=== PATIENT | female | born 1985 | race Caucasian/White ===

== ENCOUNTER 2016-04-30 04:00 | Emergency (ER) | payer OTHER ==
[~2016-04-30] VITALS: Ht 167.6 cm; Wt 59.1 kg
[~2016-04-30 04:00] MED LIST: ALBU8.5H3 INH; BISA10SU58 PR; IBUP400T22 PO; LACT10SO5 PO; NITR-58 PO; PHEN-538 PO; PROM5SYR2 PO
[2016-04-30 04:06] VITALS: Ht 167.6 cm; Wt 59.1 kg
[2016-04-30] MEDS ORDERED: AZIT250T94 PO (06:18)
--- NOTE | 2016-04-30 06:26 | ERD ---
ER Documentation Chief Complaint Date/Time DATE: 04/30/16 TIME: 06:24 Chief Complaint SOB and ST x 1 week, no distress, hx bronchitis/pneumonia HPI Patient is a 31-year-old female who has shortness of breath and throat pain for 1 week. She has tried eqzc-hfm-motssap medications which have not helped. Denies any nausea vomiting or diarrhea. Denies fever. Admits to dry cough. She is tolerating oral intake. There is no hemoptysis. Pain is mild to moderate. ROS All systems reviewed and are negative except as per history of present illness. Medications Home Meds Active Scripts Azithromycin* (Zithromax*) 250 Mg Tablet, 250 MG PO .ZPACK DIRECTED, #6 TAB TAKE 500 MG (2 TABS) THE FIRST DAY THEN 250 MG (1 TAB) DAYS 2-5 Prov:KYLE GREENFIELD PA-C 04/30/16 Ibuprofen* (Ibuprofen*) 400 Mg Tablet, 400 MG PO Q6H Y for PAIN, #30 TAB Prov:SHANNAN THORPE PA-C 01/17/16 Promethazine HCl/Codeine (Prometh-Codein 6.25-10 mg/5 ml) 5 Ml Syrup, 5 ML PO Q6 for COUGH, #80 ML Prov:SHANNAN THORPE PA-C 01/17/16 Albuterol Sulfate* (Proair HFA*) 8.5 Gm Hfa.aer.ad, 2 PUFF INH Q4H Y for WHEEZING AND SOB, #1 INHALER Prov:SHANNAN THORPE PA-C 01/17/16 Phenazopyridine Hcl* (Pyridium*) 200 Mg Tab, 200 MG PO TID Y for DYSURIA, #6 TAB Prov:JEREMIAS SALAS NP 06/22/15 Nitrofurantoin Monohyd Macrocr* (Macrobid*) 100 Mg Capsr, 100 MG PO BID for 7 Days, CAP Prov:JEREMIAS SALAS NP 06/22/15 Nitrofurantoin Monohyd Macrocr* (Macrobid*) 100 Mg Capsr, 100 MG PO BID for 7 Days, CAP Prov:JEREMIAS SALAS NP 06/07/15 Bisacodyl* (Dulcolax*) 10 Mg/Supp.rect Supp.rect, 10 MG [place] DAILY, #7 SUPP.RECT Prov:HUMBERTO HERNADEZ DO 03/27/15 Lactulose* (Lactulose*) 10 Gm/15 Ml Solution, 10 GM PO DAILY, #240 ML Prov:HUMBERTO HERNADEZ DO 03/27/15 Reported Medications [none] Unknown Strength No Conflict Check 06/22/15 Allergies Allergies: Coded Allergies: No Known Allergy (Unverified , 06/22/15) PMhx/Soc Medical and Surgical Hx: pt denies Medical Hx, pt denies Surgical Hx History of Surgery: No Anesthesia Reaction: No Hx Neurological Disorder: No Hx Respiratory Disorders: No Hx Cardiac Disorders: No Hx Psychiatric Problems: No Hx Miscellaneous Medical Probl: No Hx Alcohol Use: No Hx Substance Use: No Hx Tobacco Use: Yes (4CIGS/ DAY) Smoking Status: Current every day smoker FmHx Family History: No diabetes Physical Exam Vitals Vital Signs Date Time Temp Pulse Resp B/P Pulse Ox O2 Delivery O2 Flow Rate FiO2 04/30/16 04:06 96.8 72 18 101/55 96 Physical Exam General: well developed, well nourished, alert, nontoxic, no distress Head: normocephalic, atraumatic Neck: Supple, nontender, no lymphadenopathy, no midline tenderness Ears: no tenderness over mastoids bilaterally, TMs nonerythematous, no exudates in canal Oropharynx: Mild tonsillar erythema, no edema, uvula midline, no exudates, no kissing tonsils, no drooling Respiratory: Clear to auscaultation bilaterally, speaks in full sentences, no use of accesory muscles or labored breathing, no rales, ronchi, or wheezing Cardiovascular: RRR, No murmurs GI: soft, non tender, non distended, negative murphys sign, negative mcburneys point tenderness Results 24 hrs Current Medications Medications (Trade) Dose Ordered Sig/Ananda Route PRN Reason Start Time Stop Time Status Last Admin Dose Admin Dexamethasone (Decadron) 8 mg ONCE ONCE IM 04/30/16 06:30 04/30/16 06:31 Procedures/MDM Patient presents with sore throat. She has tried [id number]-[id number]-[id number] medication which have not helped. I doubt peritonsillar abscess. Vital signs are normal. She was given Decadron here in the emergency room and discharged with azithromycin. Recommended this patient follow up with her primary care doctor within 48 hours or return to the emergency room for any worsening of symptoms. However this time I do believe there is suitable for outpatient management. I answered all their questions and they agreed with the plan and were discharged home. Departure Diagnosis: Primary Impression: Pharyngitis Condition: Stable Patient Instructions: Pharyngitis, Strep (Presumed) Additional Instructions: Call your primary care doctor TOMORROW for an appointment during the next 1-2 days.See the doctor sooner or return here if your condition worsens before your appointment time. KYLE GREENFIELD PA-C Apr 30, 2016 06:26
[2016-04-30] MEDS ORDERED: DEXAMETHASONE 10 MG/ML 1 ML INJ IM ONE (06:30)
[2016-04-30] MEDS ORDERED: BENZ100C70 PO (06:40)
== END 2016-04-30 06:44 | disposition home or self-care (01) ==
LOC: FTE 04:00
DX: J02.9 Acute pharyngitis, unspecified (principal); F17.210 Nicotine dependence, cigarettes, uncomplicated
CPT/HCPCS: 96372; J1100; Z7502

== ENCOUNTER 2016-06-17 18:42 | Emergency (ER) | payer OTHER ==
[~2016-06-17] VITALS: Ht 162.6 cm; Wt 60.5 kg
[~2016-06-17 18:42] MED LIST changes: +AZIT250T94 PO; +BENZ100C70 PO
[2016-06-17 18:48] VITALS: Ht 162.6 cm; Wt 60.5 kg
[2016-06-17] MEDS ORDERED: HYDR-902 PO (19:05)
[2016-06-17] MEDS ORDERED: CEPH-443 PO (19:05)
--- NOTE | 2016-06-17 19:44 | ERD ---
ER Documentation Chief Complaint Date/Time DATE: 06/17/16 TIME: 19:43 Chief Complaint toothache HPI Patient is a 31-year-old female with no medical problems who presents with tooth pain. She said the pain started yesterday. It is worse with eating. She feels like her left upper molar is swollen. She has a dental appointment that she scheduled for Friday. She tried Tylenol and ibuprofen with minimal help. She denies fevers. ROS All systems reviewed and are negative except as per history of present illness. Medications Home Meds Active Scripts Hydrocodone/Acetaminophen ([place] 10-325 Tablet) 1 Each Tablet, 1 TAB PO Q6H Y for PAIN, #12 TAB Prov:NASIR ROBLES MD 06/17/16 Cephalexin* (Keflex*) 500 Mg Capsule, 500 MG PO QID for 7 Days, CAP Prov:NASIR ROBLES MD 06/17/16 Benzonatate* (Tessalon Perle*) 100 Mg Capsule, 100 MG PO Q8H Y for COUGH, #20 CAP Prov:KYLE GREENFIELD PA-C 04/30/16 Azithromycin* (Zithromax*) 250 Mg Tablet, 250 MG PO .ZPACK DIRECTED, #6 TAB TAKE 500 MG (2 TABS) THE FIRST DAY THEN 250 MG (1 TAB) DAYS 2-5 Prov:KYLE GREENFIELD PA-C 04/30/16 Ibuprofen* (Ibuprofen*) 400 Mg Tablet, 400 MG PO Q6H Y for PAIN, #30 TAB Prov:SHANNAN THORPE PA-C 01/17/16 Promethazine HCl/Codeine (Prometh-Codein 6.25-10 mg/5 ml) 5 Ml Syrup, 5 ML PO Q6 for COUGH, #80 ML Prov:SHANNAN THORPE PA-C 01/17/16 Albuterol Sulfate* (Proair HFA*) 8.5 Gm Hfa.aer.ad, 2 PUFF INH Q4H Y for WHEEZING AND SOB, #1 INHALER Prov:SHANNAN THORPE PA-C 01/17/16 Phenazopyridine Hcl* (Pyridium*) 200 Mg Tab, 200 MG PO TID Y for DYSURIA, #6 TAB Prov:JEREMIAS SALAS NP 06/22/15 Nitrofurantoin Monohyd Macrocr* (Macrobid*) 100 Mg Capsr, 100 MG PO BID for 7 Days, CAP Prov:JEREMIAS SALAS AUTOMATIC [employer]E [employer] 06/22/15 Nitrofurantoin Monohyd Macrocr* (Macrobid*) 100 Mg Capsr, 100 MG PO BID for 7 Days, CAP Prov:JEREMIAS SALAS [employer]OM[employer]E [employer] 06/07/15 Bisacodyl* (Dulcolax*) 10 Mg/Supp.rect Supp.rect, 10 MG [place] DAILY, #7 SUPP.RECT Prov:HUMBERTO HERNADEZ DO 03/27/15 Lactulose* (Lactulose*) 10 Gm/15 Ml Solution, 10 GM PO DAILY, #240 ML Prov:HUMBERTO HERNADEZ DO 03/27/15 Reported Medications [none] Unknown Strength No Conflict Check 06/22/15 Allergies Allergies: Coded Allergies: No Known Allergy (Unverified , 06/22/15) PMhx/Soc Medical and Surgical Hx: pt denies Medical Hx, pt denies Surgical Hx History of Surgery: No Anesthesia Reaction: No Hx Neurological Disorder: No Hx Respiratory Disorders: No Hx Cardiac Disorders: No Hx Psychiatric Problems: No Hx Miscellaneous Medical Probl: No Hx Alcohol Use: No Hx Substance Use: No Hx Tobacco Use: No (4CIGS/ DAY) Smoking Status: Former smoker FmHx Family History: No diabetes Physical Exam Vitals Vital Signs Date Time Temp Pulse Resp B/P Pulse Ox O2 Delivery O2 Flow Rate FiO2 06/17/16 18:48 97.2 72 20 101/70 100 Physical Exam Const: Mild distress secondary to pain Head: Atraumatic Eyes: Normal Conjunctiva ENT: Normal External Ears, Nose and Mouth. No obvious swelling to the left upper molars, patient has good dentition otherwise, no sign of decay Neck: Full range of motion..~ No meningismus. Resp: Clear to auscultation bilaterally Cardio: Regular rate and rhythm, no murmurs Abd: Soft, non tender, non distended. Normal bowel sounds Skin: No petechiae or rashes Back: No midline or flank tenderness Ext: No cyanosis, or edema Neur: Awake and alert Psych: Normal Mood and Affect Procedures/MDM Patient is a 31-year-old female presents with left upper dental molar pain. I believe that outpatient management is appropriate. I will treat the patient for an early dental abscess with Penicillin VK and I will treat the pain with short course of [place] for pain. The patient will need to follow-up at her dental appointment in 2 days. She can return for any worsening symptoms. I do not believe the patient requires further workup or admission the hospital at this time. I believe outpatient management is appropriate. Departure Diagnosis: Primary Impression: Toothache Condition: Fair Patient Instructions: Dental Pain Referrals: Your dentist Additional Instructions: SPECIALIST: YOU HAVE A MEDICAL CONDITION WHICH REQUIRES YOU TO SEE A SPECIALIST WITHIN THE NEXT 1-2 DAYS. PLEASE FOLLOW UP WITH YOUR PRIMARY PHYSICIAN FOR REFFERAL.IF YOU DO NOT HAVE A PRIMARY CARE PHYSICIAN AND/OR YOU CAN NOT AFFORD TO SEE A PHYSICIAN THE FOLLOWING RESOURCES HAVE BEEN SUPPLIED TO YOU. IT IS YOUR RESPONSIBILITY TO BE SEEN BY THE SPECIALIST NASIR ROBLES MD Jun 17, 2016 19:44
== END 2016-06-17 19:30 | disposition home or self-care (01) ==
LOC: FTE 18:42
DX: K08.89 Other specified disorders of teeth and supporting structures (principal); Z87.891 Personal history of nicotine dependence
CPT/HCPCS: 99284

== ENCOUNTER 2016-12-12 16:36 | Emergency (ER) | payer OTHER ==
[~2016-12-12] VITALS: Ht 157.5 cm; Wt 65.0 kg
[~2016-12-12 16:36] MED LIST changes: +CEPH-443 PO; +HYDR-902 PO
[2016-12-12 16:40] VITALS: Ht 157.5 cm; Wt 65.0 kg
[2016-12-12] MEDS ORDERED: BENZ100C70 PO (18:29)
[2016-12-12] MEDS ORDERED: IBUP-1542 PO (18:29)
[2016-12-12] MEDS ORDERED: PHEN177S43 MT (18:29)
--- NOTE | 2016-12-12 19:52 | ERD ---
ER Documentation Chief Complaint Date/Time DATE: 12/12/16 TIME: 19:49 Chief Complaint Complains of a sore throat since last night HPI 31-year-old female patient with no significant past medical history presents to the ED complaining of sore throat that started last night. Reports that she also has a dry cough. Denies any chest pain, shortness of breath, abdominal pain, nausea, vomiting, diarrhea. 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 Denies any fever, chills, wheezing. ROS All systems reviewed and are negative except as per history of present illness. Medications Home Meds Active Scripts Albuterol Sulfate* (Ventolin HFA*) 18 Gm Hfa.aer.ad, 2 PUFF INHALATION Q4H, #1 INHALER Prov:EYAD LOMAS PA-C 12/14/16 Benzonatate* (Tessalon Perle*) 100 Mg Capsule, 100 MG PO Q8H Y for COUGH, #20 CAP Prov:JULIANE GOODE PA-C 12/12/16 Ibuprofen* (Ibuprofen*) 600 Mg Tablet, 600 MG PO Q6, #20 TAB Prov:JULIANE GOODE PA-C 12/12/16 Phenol* (Chloraseptic* [place]) 177 Ml [place].pump, 2 SPRAY MT Q4H Y for SORE THROAT, #1 BOTTLE Prov:JULIANE GOODE PA-C 12/12/16 Hydrocodone/Acetaminophen ([place] 10-325 Tablet) 1 Each Tablet, 1 TAB PO Q6H Y for PAIN, #12 TAB Prov:NASIR ROBLES MD 06/17/16 Cephalexin* (Keflex*) 500 Mg Capsule, 500 MG PO QID for 7 Days, CAP Prov:NASIR ROBLES MD 06/17/16 Benzonatate* (Tessalon Perle*) 100 Mg Capsule, 100 MG PO Q8H Y for COUGH, #20 CAP Prov:KYLE GREENFIELD PA-C 04/30/16 Azithromycin* (Zithromax*) 250 Mg Tablet, 250 MG PO .DrePACK DIRECTED, #6 TAB TAKE 500 MG (2 TABS) THE FIRST DAY THEN 250 MG (1 TAB) DAYS 2-5 Prov:KYEL GREENFIELD PA-C 04/30/16 Ibuprofen* (Ibuprofen*) 400 Mg Tablet, 400 MG PO Q6H Y for PAIN, #30 TAB Prov:SHANNAN THORPE PA-C 01/17/16 Promethazine HCl/Codeine (Prometh-Codein 6.25-10 mg/5 ml) 5 Ml Syrup, 5 ML PO Q6 for COUGH, #80 ML Prov:SHANNAN THORPE PA-C 01/17/16 Albuterol Sulfate* (Proair HFA*) 8.5 Gm Hfa.aer.ad, 2 PUFF INH Q4H Y for WHEEZING AND SOB, #1 INHALER Prov:SHANNAN THORPE PA-C 01/17/16 Phenazopyridine Hcl* (Pyridium*) 200 Mg Tab, 200 MG PO TID Y for DYSURIA, #6 TAB Prov:JEREMIAS SALAS NP 06/22/15 Nitrofurantoin Monohyd Macrocr* (Macrobid*) 100 Mg Capsr, 100 MG PO BID for 7 Days, CAP Prov:JEREMIAS SALAS NP 06/22/15 Nitrofurantoin Monohyd Macrocr* (Macrobid*) 100 Mg Capsr, 100 MG PO BID for 7 Days, CAP Prov:JEREMIAS SALAS NP 06/07/15 Bisacodyl* (Dulcolax*) 10 Mg/Supp.rect Supp.rect, [address] DAILY, #7 SUPP.RECT Prov:HUMBERTO HERNADEZ DO 03/27/15 Lactulose* (Lactulose*) 10 Gm/15 Ml Solution, 10 GM PO DAILY, #240 ML Prov:HUMBERTO HERNADEZ DO 03/27/15 Reported Medications [none] Unknown Strength No Conflict Check 06/22/15 Allergies Allergies: Coded Allergies: No Known Allergy (Unverified , 06/22/15) PMhx/Soc Medical and Surgical Hx: pt denies Medical Hx, pt denies Surgical Hx History of Surgery: No Anesthesia Reaction: No Hx Neurological Disorder: No Hx Respiratory Disorders: No Hx Cardiac Disorders: No Hx Psychiatric Problems: No Hx Miscellaneous Medical Probl: No Hx Alcohol Use: No Hx Substance Use: No Hx Tobacco Use: No (4CIGS/ DAY) Smoking Status: Never smoker Physical Exam Vitals Vital Signs Date Time Temp Pulse Resp B/P Pulse Ox O2 Delivery O2 Flow Rate FiO2 12/12/16 16:40 98.0 74 20 109/61 97 Physical Exam Const: Yxw-[id number]-onuqzqthu, well-nourished. In no acute distress. Head: Atraumatic, normocephalic Eyes: Normal Conjunctiva without injection. No purulent discharge. PERRL. EOMI ENT: Normal external ear. Ear canal without erythema. Tympanic membrane pearly johnston without effusion or bulging. Nasal canal clear with normal turbinates. Moist oropharynx without tonsillar exudates. Non-erythematous pharynx. Uvula midline. No drooling. No trismus. Neck: Full range of motion. No meningismus. No cervical lymphadenopathy. Resp: Clear to auscultation bilaterally. No wheezing, rhonchi, rales, or crackles. No accessory muscle use. No retractions. Cardio: Regular rate and rhythm. No murmurs, rubs or gallops. Abd: Soft, non tender, non distended. Normal bowel sounds. No palpable masses. No rebound tenderness. No guarding. Skin: No petechiae or rashes Back: No midline tenderness. No CVA tenderness. Ext: No cyanosis, or edema. Neur: Awake and alert. Psych: Normal Mood and Affect Procedures/MDM This is a 31-year-old female patient with no significant past medical history presents to the ED complaining of sore throat, dry cough that started yesterday. Patient is afebrile and nontoxic-appearing. Patient has normal vital signs. This patient presents to the ED with symptoms consistent with a viral acute upper respiratory infection. Patient is afebrile and has normal vital signs. Patient's physical exam include lungs which were clear to auscultation and a normal pulse oximetry. There is a low suspicion for pneumonia , pneumothorax, mononucleosis, pulmonary embolism, epiglottitis, otitis media, otitis externa, viral/strep pharyngitis, sinusitis, peritonsillar abscess, mastoiditis, retropharyngeal abscess, meningitis, sepsis, acute abdomen or other emergent conditions. Fluids, rest, and symptomatic treatment are recommended for the management of patient's symptoms. Discharge medications: Tessalon Perles, Chloraseptic [place], Ibuprofen Patient was instructed to return to the ED for any new or worsening symptoms. They should otherwise follow up with the primary care provider within 1-2 days. The patient's questions were answered at the time of discharge. Patient understood and agreed with discharge management. Departure Diagnosis: Primary Impression: URI (upper respiratory infection) URI type: unspecified URI Qualified Code: J06.9 - Upper respiratory tract infection, unspecified type Condition: Stable Patient Instructions: Uri, Viral, No Abx (Adult) Referrals: [facility] YOU HAVE RECEIVED A MEDICAL SCREENING EXAM AND THE RESULTS INDICATE THAT YOU DO NOT HAVE A CONDITION THAT REQUIRES URGENT TREATMENT IN THE EMERGENCY DEPARTMENT. FURTHER EVALUATION AND TREATMENT OF YOUR CONDITION CAN WAIT UNTIL YOU ARE SEEN IN YOUR DOCTORS OFFICE WITHIN THE NEXT 1-2 DAYS. IT IS YOUR RESPONSIBILITY TO MAKE AN APPOINTMENT FOR FOLOW-UP CARE. IF YOU HAVE A PRIMARY DOCTOR --you should call your primary doctor and schedule an appointment IF YOU DO NOT HAVE A PRIMARY DOCTOR YOU CAN CALL OUR PHYSICIAN REFERRAL HOTLINE AT IF YOU CAN NOT AFFORD TO SEE A PHYSICIAN YOU CAN CHOSE FROM THE FOLLOWING [facility] [address] [facility]. [facility] [address] [facility] [facility] [address] [facility] [facility] [address] [facility] [facility] [address] [facility]. [facility]. [address] [facility]. [facility] YOU HAVE RECEIVED A MEDICAL SCREENING EXAM AND THE RESULTS INDICATE THAT YOU DO NOT HAVE A CONDITION THAT REQUIRES URGENT TREATMENT IN THE EMERGENCY DEPARTMENT. FURTHER EVALUATION AND TREATMENT OF YOUR CONDITION CAN WAIT UNTIL YOU ARE SEEN IN YOUR DOCTORS OFFICE WITHIN THE NEXT 1-2 DAYS. IT IS YOUR RESPONSIBILITY TO MAKE AN APPOINTMENT FOR FOLOW-UP CARE. IF YOU HAVE A PRIMARY DOCTOR --you should call your primary doctor and schedule and appointment IF YOU DO NOT HAVE A PRIMARY DOCTOR YOU CAN CALL OUR PHYSICIAN REFERRAL HOTLINE AT . IF YOU CAN NOT AFFORD TO SEE A PHYSICIAN YOU CAN CHOSE FROM THE FOLLOWING [facility]: [facility] [place] [address] [place] [address] [facility] [address] [place] [address] [facility] [address] [place] [address] [facility] URGENT CARE/SPECIALTIES Additional Instructions: Call your primary care doctor TOMORROW for an appointment during the next 2-3 days.See the doctor sooner or return here if your condition worsens before your appointment time. JULIANE GOODE PA-C Dec 12, 2016 19:52
== END 2016-12-12 18:40 | disposition home or self-care (01) ==
LOC: FTE 16:36
DX: J06.9 Acute upper respiratory infection, unspecified (principal); F17.210 Nicotine dependence, cigarettes, uncomplicated
CPT/HCPCS: 99283

== ENCOUNTER 2016-12-14 16:44 | Emergency (ER) | payer OTHER ==
[~2016-12-14] VITALS: Ht 157.5 cm; Wt 64.5 kg
[~2016-12-14 16:44] MED LIST changes: +IBUP-1542 PO; +PHEN177S43 MT
[2016-12-14 16:46] VITALS: Ht 157.5 cm; Wt 64.5 kg
[2016-12-14] MEDS ORDERED: ALBU18HF INHALATION (17:12)
[2016-12-14] MEDS ORDERED: DEXAMETHASONE 10 MG/ML 1 ML INJ IM ONE (17:30)
--- NOTE | 2016-12-14 18:21 | ERD ---
ER Documentation Chief Complaint Date/Time DATE: 12/14/16 TIME: 18:19 Chief Complaint COUGH AND CONGESTION WITH SOB X 6 DAYS HPI This patient is a 31-year-old female presenting to the emergency department with complaints of cough and congestion with mild shortness of breath ongoing intermittently for the past 6 days. The patient states she did have similar symptoms in the past and received an injection of Decadron and symptoms improved rapidly. Symptoms are constant and worsening. She was seen here recently and diagnosed with viral URI and given prescriptions for maintenance of symptoms at home. She denies fevers, chills, or other symptoms currently. ROS All systems reviewed and are negative except as per history of present illness. Medications Home Meds Active Scripts Albuterol Sulfate* (Ventolin HFA*) 18 Gm Hfa.aer.ad, 2 PUFF INHALATION Q4H, #1 INHALER Prov:EYAD LOMAS PA-C 12/14/16 Benzonatate* (Tessalon Perle*) 100 Mg Capsule, 100 MG PO Q8H Y for COUGH, #20 CAP Prov:JULIANE GOODE PA-C 12/12/16 Ibuprofen* (Ibuprofen*) 600 Mg Tablet, 600 MG PO Q6, #20 TAB Prov:JULIANE GOODE PA-C 12/12/16 Phenol* (Chloraseptic* [place]) 177 Ml [place].pump, 2 SPRAY MT Q4H Y for SORE THROAT, #1 BOTTLE Prov:JULIANE GOODE PA-C 12/12/16 Hydrocodone/Acetaminophen ([place] 10-325 Tablet) 1 Each Tablet, 1 TAB PO Q6H Y for PAIN, #12 TAB Prov:NAISR ROBLES MD 06/17/16 Cephalexin* (Keflex*) 500 Mg Capsule, 500 MG PO QID for 7 Days, CAP Prov:NASIR ROBLES MD 06/17/16 Benzonatate* (Tessalon Perle*) 100 Mg Capsule, 100 MG PO Q8H Y for COUGH, #20 CAP Prov:KYLE GREENFIELD PA-C 04/30/16 Azithromycin* (Zithromax*) 250 Mg Tablet, 250 MG PO .DrePACK DIRECTED, #6 TAB TAKE 500 MG (2 TABS) THE FIRST DAY THEN 250 MG (1 TAB) DAYS 2-5 Prov:KYLE GREENFIELD PA-C 04/30/16 Ibuprofen* (Ibuprofen*) 400 Mg Tablet, 400 MG PO Q6H Y for PAIN, #30 TAB Prov:SHANNAN THORPE PA-C 01/17/16 Promethazine HCl/Codeine (Prometh-Codein 6.25-10 mg/5 ml) 5 Ml Syrup, 5 ML PO Q6 for COUGH, #80 ML Prov:SHANNAN THORPE PA-C 01/17/16 Albuterol Sulfate* (Proair HFA*) 8.5 Gm Hfa.aer.ad, 2 PUFF INH Q4H Y for WHEEZING AND SOB, #1 INHALER Prov:SHANNAN THORPE PA-C 01/17/16 Phenazopyridine Hcl* (Pyridium*) 200 Mg Tab, 200 MG PO TID Y for DYSURIA, #6 TAB Prov:JEREMIAS SALAS NP 06/22/15 Nitrofurantoin Monohyd Macrocr* (Macrobid*) 100 Mg Capsr, 100 MG PO BID for 7 Days, CAP Prov:JEREMIAS SALAS PROFESSOR OF SOCIAL WORK 06/22/15 Nitrofurantoin Monohyd Macrocr* (Macrobid*) 100 Mg Capsr, 100 MG PO BID for 7 Days, CAP Prov:JEREMIAS SALAS PROFESSOR OF SOCIAL WORK 06/07/15 Bisacodyl* (Dulcolax*) 10 Mg/Supp.rect Supp.rect, 10 MG [place] DAILY, #7 SUPP.RECT Prov:HUMBERTO HERNADEZ DO 03/27/15 Lactulose* (Lactulose*) 10 Gm/15 Ml Solution, 10 GM PO DAILY, #240 ML Prov:HUMBERTO HERNADEZ DO 03/27/15 Reported Medications [none] Unknown Strength No Conflict Check 06/22/15 Allergies Allergies: Coded Allergies: No Known Allergy (Unverified , 06/22/15) PMhx/Soc Medical and Surgical Hx: pt denies Medical Hx History of Surgery: No Anesthesia Reaction: No Hx Neurological Disorder: No Hx Respiratory Disorders: No Hx Cardiac Disorders: No Hx Psychiatric Problems: No Hx Miscellaneous Medical Probl: No Hx Alcohol Use: No Hx Substance Use: No Hx Tobacco Use: No (4CIGS/ DAY) Physical Exam Vitals Vital Signs Date Time Temp Pulse Resp B/P Pulse Ox O2 Delivery O2 Flow Rate FiO2 12/14/16 16:46 97.6 60 18 105/58 98 Physical Exam Const: Nontoxic, well-appearing female in no acute distress. Head: Atraumatic Eyes: Normal Conjunctiva ENT: Normal External Ears, Nose and Mouth. Neck: Full range of motion..~ No meningismus. Resp: Fellow inspiratory effort, but no wheezes, rales, rhonchi, or crackles noted. No signs of respiratory distress. No retractions noted. Cardio: Regular rate and rhythm, no murmurs Skin: No petechiae or rashes Ext: No cyanosis, or edema Neur: Awake and alert Psych: Normal Mood and Affect Results 24 hrs Current Medications Medications (Trade) Dose Ordered Sig/Ananda Route PRN Reason Start Time Stop Time Status Last Admin Dose Admin Dexamethasone (Decadron) 10 mg ONCE ONCE IM 12/14/16 17:30 12/14/16 17:30 DC 12/14/16 17:19 Procedures/MDM 31-year-old female presents to the emergency department with complaints of cough and congestion for the past 6 days. Patient states she has had very similar symptoms in the past and a Decadron injection rapidly improved her symptoms. With this information, I did order the patient an injection of Decadron and gave her prescription for an inhaler. I have low suspicion for life-threatening pathology at time of discharge. The patient was advised to follow-up with her primary care physician in the next 1-2 days. Strict ER return precautions were discussed. Departure Diagnosis: Primary Impression: URI (upper respiratory infection) URI type: unspecified URI Qualified Code: J06.9 - Upper respiratory tract infection, unspecified type Additional Impression: Shortness of breath Condition: Fair Patient Instructions: Coping with Shortness of Breath: Controlling Stress Referrals: DEBBI OWEN MD (PCP) Additional Instructions: Follow up with your PCP within the next 1-3 days for a repeat evaluation. If you require a referral to a specialist, your Primary Care Provider may be able to provide this for you. In most patient cases, a referral is not required. If you have further questions regarding this matter, please ask your Primary Care Provider. Return the the emergency department immediately if symptoms worsen or change. If you have any questions regarding medications, ask your pharmacist or us before you leave. If any adverse reactions, occur while taking your medications, discontinue the treatment and return to the emergency department immediately. If any new or worsening symptoms, uncontrolled fevers, or other unexplained symptoms occur, return to the emergency department immediately. Take your medications as directed, and complete the entire course of treatment. EYAD LOMAS PA-C Dec 14, 2016 18:21
== END 2016-12-14 17:26 | disposition home or self-care (01) ==
LOC: FTE 16:44
DX: J06.9 Acute upper respiratory infection, unspecified (principal); R06.02 Shortness of breath; F17.210 Nicotine dependence, cigarettes, uncomplicated
CPT/HCPCS: 96372; J1100; Z7502

== ENCOUNTER 2017-05-20 11:30 | Emergency (ER) | END 2017-05-20 15:00 | disposition home or self-care (01) ==

== ENCOUNTER 2017-08-08 05:00 | Emergency (ER) | END 2017-08-08 05:40 | disposition home or self-care (01) ==

== ENCOUNTER 2018-03-11 06:44 | Emergency (ER) | END 2018-03-11 07:55 | disposition home or self-care (01) ==